=== PATIENT | male | born 1960 | race Caucasian/White ===

== ENCOUNTER 2018-09-17 07:21 | Outpatient (CLI) | payer OTHER | END 2018-09-17 07:29 | disposition home or self-care (01) | LOC: LAB 07:21 | DX: D69.59 Other secondary thrombocytopenia (principal); I10 Essential (primary) hypertension; N40.1 Benign prostatic hyperplasia with lower urinary tract symptoms; E78.2 Mixed hyperlipidemia; D50.8 Other iron deficiency anemias; D51.8 Other vitamin B12 deficiency anemias; D51.0 Vitamin B12 deficiency anemia due to intrinsic factor deficiency; D51.1 Vitamin B12 deficiency anemia due to selective vitamin B12 malabsorption with proteinuria; K90.89 Other intestinal malabsorption; E06.3 Autoimmune thyroiditis; D68.8 Other specified coagulation defects; R97.0 Elevated carcinoembryonic antigen [CEA] ==

== ENCOUNTER 2018-09-17 08:17 | Outpatient (CLI) | payer OTHER | END 2018-09-17 08:19 | disposition home or self-care (01) | LOC: SONOGRAMA 08:17 | DX: E04.1 Nontoxic single thyroid nodule (principal); D69.59 Other secondary thrombocytopenia; I10 Essential (primary) hypertension; N40.1 Benign prostatic hyperplasia with lower urinary tract symptoms; E78.2 Mixed hyperlipidemia; E03.8 Other specified hypothyroidism ==

== ENCOUNTER 2018-10-29 10:57 | Outpatient (CLI) | payer OTHER | END 2018-10-29 11:07 | disposition home or self-care (01) | LOC: SONOGRAMA 10:57 | DX: E03.8 Other specified hypothyroidism (principal); E06.3 Autoimmune thyroiditis ==